=== PATIENT | male | born 1970 | race Caucasian/White ===

== ENCOUNTER 2017-02-26 15:08 | Emergency (ER) | payer MEDICAID, SELFPAY ==
[~2017-02-26] VITALS: Ht 177.8 cm; Wt 83.6 kg
[2017-02-26] MEDS ORDERED: ALBUTEROL/IPRATROPIUM 2.5MG/0.5MG, 3 ML NPPB SCH (15:30)
[2017-02-26] MEDS ORDERED: ALBUTEROL/IPRATROPIUM 2.5MG/0.5MG, 3 ML ONE (15:51)
[2017-02-26 15:54] LABS: BLOOD UREA NITROGEN 11 mg/dL (7-18)
[2017-02-26 18:12] VITALS: BP 116/87
== END 2017-02-26 18:14 | disposition home or self-care (01) ==
LOC: ED 16:39
DX: J44.1 Chronic obstructive pulmonary disease with (acute) exacerbation (principal); H70.11 Chronic mastoiditis, right ear; J06.9 Acute upper respiratory infection, unspecified
CPT/HCPCS: 36415; 70480; 71020; 80048; 85025; 93005; 94640; 99285; J7512; J7620

== ENCOUNTER 2017-03-22 03:38 | Emergency (ER) | payer MEDICAID ==
[~2017-03-22] VITALS: Ht 177.8 cm; Wt 82.8 kg
[2017-03-22 03:40] VITALS: BP 159/101
[2017-03-22] MEDS ORDERED: AMOX-291 PO (04:00)
[2017-03-22] MEDS ORDERED: PRED20TA PO (04:00)
== END 2017-03-22 04:33 | disposition home or self-care (01) ==
LOC: ED 04:27
DX: M79.602 Pain in left arm (principal); H60.92 Unspecified otitis externa, left ear; Z76.0 Encounter for issue of repeat prescription; J44.9 Chronic obstructive pulmonary disease, unspecified
CPT/HCPCS: 99283

== ENCOUNTER 2017-05-09 09:36 | Inpatient (IN) | payer MEDICAID ==
[~2017-05-09] VITALS: Ht 175.3 cm; Wt 104.4 kg
[~2017-05-09 09:36] MED LIST: AMOX-291 PO; PRED20TA PO
[2017-05-09] MEDS ORDERED: ALBUTEROL/IPRATROPIUM 2.5MG/0.5MG, 3 ML NPPB SCH (10:00)
[2017-05-09] MEDS ORDERED: methylPREDNISolone SOD SUCC 125 MG/2 ML IVP ONE (10:00)
[2017-05-09] MEDS ORDERED: SODIUM CHLORIDE FLUSH 10ML SYR IVF ONE (10:00)
[2017-05-09] MEDS ORDERED: SODIUM CHLORIDE 0.9% 1,000ML IVBOLUS ONE (10:00)
[2017-05-09] MEDS ORDERED: ALBUTEROL/IPRATROPIUM 2.5MG/0.5MG, 3 ML ONE (10:14)
[2017-05-09] MEDS ORDERED: methylPREDNISolone SOD SUCC 125 MG/2 ML ONE (10:19)
[2017-05-09 10:54] LABS: BLOOD UREA NITROGEN 9 mg/dL (7-18)
[2017-05-09 10:59] LABS: IS PT STATUS REG ER OR PRE ER? YES
[2017-05-09] MEDS ORDERED: AZITHROMYCIN 500 MG in SODIUM CHLORIDE 0.9% 250 ML IV ONE (11:30)
[2017-05-09] MEDS ORDERED: CEFTRIAXONE PMX 1GM/50ML 50 ML IV ONE (11:30)
[2017-05-09] MEDS ORDERED: CEFTRIAXONE PMX 1GM/50ML 50 ML ONE (11:53)
[2017-05-09] MEDS ORDERED: ZOLPIDEM 5MG TABLET PO PRN (12:00)
[2017-05-09] MEDS ORDERED: ACETAMINOPHEN 325 MG TABLET PO PRN (12:00)
[2017-05-09] MEDS ORDERED: SPIRIVA (12:01)
[2017-05-09] MEDS ORDERED: ALBUTEROL SULFATE (12:01)
[2017-05-09] MEDS: LACTATED RINGERS 1,000 ML IV SCH ×2 (13:00→23:00)
[2017-05-09] MEDS ORDERED: POTASSIUM CHLORIDE 20 MEQ TAB.ER.PRT PO ONE (13:30)
[2017-05-09] MEDS: AZITHROMYCIN 500 MG TABLET PO SCH (15:00)
[2017-05-09] MEDS: HEPARIN 5,000 UNITS/ML, 1ML SQ SCH (15:08)
[2017-05-09] MEDS: GUAIFENESIN 200 MG TABLET PO SCH ×2 (15:08→22:54)
[2017-05-09] MEDS: ALBUTEROL/IPRATROPIUM 2.5MG/0.5MG, 3 ML NPPB SCH ×2 (16:05→20:00)
[2017-05-09 17:18] VITALS: BP 135/89
[2017-05-09] MEDS ORDERED: PNEUMOCOCCAL 23 VACCINE IM-VACC ONE (18:30)
[2017-05-09 20:56] VITALS: BP 141/82
[2017-05-10] MEDS: HEPARIN 5,000 UNITS/ML, 1ML SQ SCH ×3 (00:23→15:53)
[2017-05-10] MEDS: LORazepam 2 MG/ML, 1ML IVPush PRN ×2 (00:23→08:09)
[2017-05-10 01:14] VITALS: BP 125/80
[2017-05-10 05:43] LABS: BLOOD UREA NITROGEN 8 mg/dL (7-18)
[2017-05-10] MEDS: GUAIFENESIN 200 MG TABLET PO SCH ×4 (06:11→20:44)
[2017-05-10 07:12] LABS: DIFF TOTAL CELLS COUNTED 100 CELL DIFF
[2017-05-10 07:14] LABS: ANISOCYTOSIS 1+; VERIFY COUNTS? YES
[2017-05-10 07:17] VITALS: BP 149/95
[2017-05-10] MEDS: ALBUTEROL/IPRATROPIUM 2.5MG/0.5MG, 3 ML NPPB SCH ×4 (07:53→20:00)
[2017-05-10] MEDS ORDERED: OXYcodone/APAP 10/325MG TABLET PO ONE (08:30)
[2017-05-10] MEDS ORDERED: AZITHROMYCIN 500 MG TABLET PO SCH (09:00)
[2017-05-10] MEDS: LACTATED RINGERS 1,000 ML IV SCH ×2 (09:02→18:00)
[2017-05-10] MEDS: CIPROFLOXACIN/HYDROCORTISONE EAR SUSP 0.2-1%, 10ML RIGHT EAR SCH ×2 (11:08→20:44)
[2017-05-10] MEDS: AZITHROMYCIN 500 MG TABLET PO SCH (15:00)
[2017-05-10 15:05] VITALS: BP 162/106
[2017-05-10] MEDS: LORazepam 1MG TABLET PO PRN ×2 (15:11→23:03)
[2017-05-10 15:54] VITALS: BP 159/102
[2017-05-10 19:21] VITALS: BP 159/96
[2017-05-11] MEDS: HEPARIN 5,000 UNITS/ML, 1ML SQ SCH ×3 (00:31→16:58)
[2017-05-11 01:13] VITALS: BP 142/102
[2017-05-11] MEDS: LACTATED RINGERS 1,000 ML IV SCH ×2 (04:00→14:00)
[2017-05-11] MEDS: GUAIFENESIN 200 MG TABLET PO SCH ×4 (05:27→21:25)
[2017-05-11] MEDS: ALBUTEROL/IPRATROPIUM 2.5MG/0.5MG, 3 ML NPPB SCH ×4 (08:07→19:08)
[2017-05-11] MEDS: AZITHROMYCIN 500 MG TABLET PO SCH (08:54)
[2017-05-11] MEDS: CIPROFLOXACIN/HYDROCORTISONE EAR SUSP 0.2-1%, 10ML RIGHT EAR SCH ×2 (08:54→21:26)
[2017-05-11 09:29] VITALS: BP 151/105
[2017-05-11] MEDS: LORazepam 1MG TABLET PO PRN ×2 (11:32→21:26)
[2017-05-11 14:00] VITALS: BP 166/111
[2017-05-11] MEDS: methylPREDNISolone SOD SUCC 125 MG/2 ML IVPush SCH ×2 (14:52→21:26)
[2017-05-11 19:22] VITALS: BP 152/104
[2017-05-11] MEDS: ACETAMINOPHEN 325 MG TABLET PO PRN (22:04)
[2017-05-11] MEDS: ZOLPIDEM 5MG TABLET PO PRN (22:04)
[2017-05-11] MEDS: NICOTINE 21 MG/24 HR PATCH.TD24 TD SCH (22:05)
[2017-05-12] MEDS: HEPARIN 5,000 UNITS/ML, 1ML SQ SCH ×3 (00:28→16:19)
[2017-05-12] MEDS: LACTATED RINGERS 1,000 ML IV SCH ×3 (02:14→22:08)
[2017-05-12 04:25] VITALS: BP 133/84
[2017-05-12] MEDS: ACETAMINOPHEN 325 MG TABLET PO PRN ×2 (04:55→14:21)
[2017-05-12] MEDS: LORazepam 1MG TABLET PO PRN ×2 (04:55→14:21)
[2017-05-12] MEDS: GUAIFENESIN 200 MG TABLET PO SCH ×4 (04:55→21:32)
[2017-05-12] MEDS: methylPREDNISolone SOD SUCC 125 MG/2 ML IVPush SCH ×3 (05:57→22:08)
[2017-05-12 06:40] VITALS: BP 141/88
[2017-05-12] MEDS: ALBUTEROL/IPRATROPIUM 2.5MG/0.5MG, 3 ML NPPB SCH ×4 (07:45→19:10)
[2017-05-12] MEDS: NICOTINE 21 MG/24 HR PATCH.TD24 TD SCH (08:54)
[2017-05-12] MEDS: AZITHROMYCIN 500 MG TABLET PO SCH (08:54)
[2017-05-12] MEDS: CIPROFLOXACIN/HYDROCORTISONE EAR SUSP 0.2-1%, 10ML RIGHT EAR SCH ×2 (08:55→21:32)
[2017-05-12 13:49] VITALS: BP 141/87
[2017-05-12 18:28] VITALS: BP 132/87
[2017-05-12] MEDS: ZOLPIDEM 5MG TABLET PO PRN (21:32)
[2017-05-13] MEDS: HEPARIN 5,000 UNITS/ML, 1ML SQ SCH ×3 (00:56→18:01)
[2017-05-13 03:29] VITALS: BP 133/64
[2017-05-13 05:28] LABS: BLOOD UREA NITROGEN 18 mg/dL (7-18)
[2017-05-13] MEDS: GUAIFENESIN 200 MG TABLET PO SCH ×4 (05:58→21:27)
[2017-05-13] MEDS: methylPREDNISolone SOD SUCC 125 MG/2 ML IVPush SCH (05:58)
[2017-05-13] MEDS: ALBUTEROL/IPRATROPIUM 2.5MG/0.5MG, 3 ML NPPB SCH ×4 (07:00→19:03)
[2017-05-13 07:03] VITALS: BP 151/93
[2017-05-13] MEDS: LORazepam 1MG TABLET PO PRN ×2 (07:31→21:27)
[2017-05-13] MEDS: NICOTINE 21 MG/24 HR PATCH.TD24 TD SCH ×2 (09:00→19:23)
[2017-05-13] MEDS: CIPROFLOXACIN/HYDROCORTISONE EAR SUSP 0.2-1%, 10ML RIGHT EAR SCH ×2 (09:36→21:27)
[2017-05-13] MEDS: AZITHROMYCIN 500 MG TABLET PO SCH (09:36)
[2017-05-13] MEDS: LACTATED RINGERS 1,000 ML IV SCH ×2 (09:38→19:22)
[2017-05-13 17:46] VITALS: BP 156/94
[2017-05-13 18:46] VITALS: BP 142/98
[2017-05-14] MEDS: ZOLPIDEM 5MG TABLET PO PRN (00:24)
[2017-05-14] MEDS: HEPARIN 5,000 UNITS/ML, 1ML SQ SCH ×2 (00:28→07:39)
[2017-05-14 02:42] VITALS: BP 138/88
[2017-05-14] MEDS: GUAIFENESIN 200 MG TABLET PO SCH (06:24)
[2017-05-14] MEDS: LACTATED RINGERS 1,000 ML IV SCH (06:25)
[2017-05-14] MEDS: ALBUTEROL/IPRATROPIUM 2.5MG/0.5MG, 3 ML NPPB SCH ×2 (07:00→09:42)
[2017-05-14 07:03] VITALS: BP 161/104
[2017-05-14] MEDS: LORazepam 1MG TABLET PO PRN (07:37)
[2017-05-14] MEDS: CIPROFLOXACIN/HYDROCORTISONE EAR SUSP 0.2-1%, 10ML RIGHT EAR SCH (07:40)
[2017-05-14] MEDS: NICOTINE 21 MG/24 HR PATCH.TD24 TD SCH (07:41)
[2017-05-14] MEDS ORDERED: ALBU8.5H3 INH (09:05)
[2017-05-14] MEDS ORDERED: PRED20TA PO (09:05)
[2017-05-14] MEDS ORDERED: TRAM50TA2 PO (09:05)
[2017-05-14] MEDS ORDERED: GUAI200T3 PO (09:05)
[2017-05-14] MEDS ORDERED: TIOT18CA INH (09:05)
[2017-05-14] MEDS ORDERED: LORA-446 PO (09:05)
[2017-05-14] MEDS ORDERED: CIPR10DR RIGHT EAR (09:05)
[2017-05-14] MEDS: AZITHROMYCIN 500 MG TABLET PO SCH (10:26)
== END 2017-05-14 12:17 | disposition home or self-care (01) | DRG 189 ==
LOC: ED 10:26 → EDIP 11:29 → 3NE 12:20 → DCLOUNGE 05-14 12:00
PROVIDERS: ADMIT Internal Medicine; ATTEND Hospitalist
DX: J96.01 Acute respiratory failure with hypoxia (principal); J44.1 Chronic obstructive pulmonary disease with (acute) exacerbation; J45.901 Unspecified asthma with (acute) exacerbation; F11.20 Opioid dependence, uncomplicated; J32.9 Chronic sinusitis, unspecified; G89.29 Other chronic pain; H66.91 Otitis media, unspecified, right ear; R51 Headache; H60.91 Unspecified otitis externa, right ear; F17.210 Nicotine dependence, cigarettes, uncomplicated; Z59.0 Homelessness; Z71.6 Tobacco abuse counseling
CPT/HCPCS: 36415; 71010; 80048; 82040; 82607; 82746; 83880; 84484; 85025; 87040; 90732; 93005; 93306; 94640; 96361; 96365; 96375; J0696; J1644; J7620; J2060; J2930; J7030; J7120; J7512

== ENCOUNTER 2017-10-26 04:27 | Emergency (ER) | payer MEDICAID ==
[~2017-10-26] VITALS: Ht 177.8 cm; Wt 80.3 kg
[~2017-10-26 04:27] MED LIST changes: +ALBU8.5H8 INH; +ALBUTEROL SULFATE; +CIPR10DR RIGHT EAR; +GUAI200T3 PO; +LORA-446 PO; +SPIRIVA; +TIOT18CA INH; +TRAM50TA2 PO
[2017-10-26 04:28] VITALS: BP 145/99
[2017-10-26] MEDS ORDERED: BACITRACIN ZINC OINT 500U/GM, 0.9 GM ONE (04:57)
== END 2017-10-26 05:19 | disposition home or self-care (01) ==
LOC: ED 05:13
DX: S81.852A Open bite, left lower leg, initial encounter (principal); J45.909 Unspecified asthma, uncomplicated; Z87.891 Personal history of nicotine dependence; W54.0XXA Bitten by dog, initial encounter; Y93.89 Activity, other specified; Y92.89 Other specified places as the place of occurrence of the external cause; Y99.8 Other external cause status
CPT/HCPCS: 99283

== ENCOUNTER 2017-12-29 15:13 | Emergency (ER) | payer MEDICAID ==
[~2017-12-29] VITALS: Ht 177.8 cm; Wt 84.6 kg
[2017-12-29 15:15] VITALS: BP 167/102
[2017-12-29] MEDS ORDERED: KETOROLAC 30 MG/1 ML ONE (15:58)
[2017-12-29] MEDS ORDERED: KETOROLAC 30 MG/1 ML IM ONE (16:00)
== END 2017-12-29 16:30 | disposition home or self-care (01) ==
LOC: ED 16:20
DX: M54.41 Lumbago with sciatica, right side (principal); M16.11 Unilateral primary osteoarthritis, right hip; M51.16 Intervertebral disc disorders with radiculopathy, lumbar region; J45.909 Unspecified asthma, uncomplicated
CPT/HCPCS: 72110; 73502; 96372; 99284; J1885

== ENCOUNTER 2018-03-02 16:31 | Emergency (ER) | payer MEDICAID ==
[~2018-03-02] VITALS: Ht 177.8 cm; Wt 82.8 kg
[2018-03-02] MEDS ORDERED: ALBUTEROL/IPRATROPIUM 2.5MG/0.5MG, 3 ML ONE (16:57)
[2018-03-02] MEDS ORDERED: ALBUTEROL SULFATE 2.5MG/0.5ML ONE (16:58)
[2018-03-02] MEDS ORDERED: ALBUTEROL/IPRATROPIUM 2.5MG/0.5MG, 3 ML NPPB PRN (17:00)
[2018-03-02 17:52] VITALS: BP 141/106
== END 2018-03-02 19:41 | disposition home or self-care (01) ==
LOC: ED 18:50
DX: S29.012A Strain of muscle and tendon of back wall of thorax, initial encounter (principal); J45.41 Moderate persistent asthma with (acute) exacerbation; M19.90 Unspecified osteoarthritis, unspecified site; X58.XXXA Exposure to other specified factors, initial encounter; Y93.89 Activity, other specified; Y92.89 Other specified places as the place of occurrence of the external cause; Y99.8 Other external cause status
CPT/HCPCS: 71045; 93005; 94640; 99284; J7512; J7620

== ENCOUNTER 2018-04-24 18:33 | Emergency (ER) | payer MEDICAID ==
[~2018-04-24] VITALS: Ht 177.8 cm; Wt 78.2 kg
[2018-04-24 18:35] VITALS: BP 147/92
[2018-04-24] MEDS ORDERED: HYDROcodone/APAP 5/325 TABLET PO STA (19:15)
[2018-04-24] MEDS ORDERED: HYDROcodone/APAP 5/325 TABLET ONE (19:19)
[2018-04-24] MEDS ORDERED: ALBUTEROL/IPRATROPIUM 2.5MG/0.5MG, 3 ML ONE (19:30)
[2018-04-24] MEDS ORDERED: ALBUTEROL/IPRATROPIUM 2.5MG/0.5MG, 3 ML NPPB ONE (19:30)
== END 2018-04-24 20:21 | disposition home or self-care (01) ==
LOC: ED 19:45
DX: S20.211A Contusion of right front wall of thorax, initial encounter (principal); J45.909 Unspecified asthma, uncomplicated; M19.91 Primary osteoarthritis, unspecified site; F17.210 Nicotine dependence, cigarettes, uncomplicated; Y04.0XXA Assault by unarmed brawl or fight, initial encounter; Y93.89 Activity, other specified; Y92.009 Unspecified place in unspecified non-institutional (private) residence as the place of occurrence of the external cause; Y99.8 Other external cause status
CPT/HCPCS: 71101; 94640; 99284; J7512; J7620

== ENCOUNTER 2018-09-17 19:39 | Emergency (ER) | payer MEDICAID ==
[~2018-09-17] VITALS: Ht 170.2 cm; Wt 85.1 kg
[~2018-09-17 19:39] MED LIST changes: +ALBU18HF INH; +ALBU90AE INH; +FLUT1AER INH; +FOLI-17 PO; +GUAI400T66 PO; +LORA-445 PO; +THIA100T67 PO
[2018-09-17 19:55] VITALS: BP 158/111
[2018-09-17] MEDS ORDERED: HYDROcodone/APAP 5/325 TABLET ONE (20:06)
[2018-09-17] MEDS ORDERED: HYDROcodone/APAP 5/325 TABLET PO STA (20:18)
== END 2018-09-17 20:36 | disposition home or self-care (01) ==
LOC: ED 20:30
DX: G56.02 Carpal tunnel syndrome, left upper limb (principal); M65.842 Other synovitis and tenosynovitis, left hand; J45.909 Unspecified asthma, uncomplicated; Z87.09 Personal history of other diseases of the respiratory system
CPT/HCPCS: 29260; 99283

== ENCOUNTER 2018-12-03 19:46 | Emergency (ER) | payer MEDICAID ==
[~2018-12-03] VITALS: Ht 177.8 cm; Wt 80.1 kg
[2018-12-03 20:03] VITALS: BP 167/100
--- NOTE | 2018-12-03 20:11 | NUR ---
PT PRESENTED WITH C/O L ARM PAIN SP MGLF. +CMS; NO OBVIOUS DEFORMITY NOTED. DENIES LOC. AWAITING PA FOR EVAL
[2018-12-03] MEDS ORDERED: KETOROLAC 30 MG/1 ML ONE (20:39)
--- NOTE | 2018-12-03 20:43 | NUR ---
PT MEDICATED PER MAR
[2018-12-03] MEDS ORDERED: KETOROLAC 30 MG/1 ML IM ONE (21:00)
== END 2018-12-03 21:09 | disposition home or self-care (01) ==
LOC: ED 20:45
DX: G89.11 Acute pain due to trauma (principal); M79.632 Pain in left forearm; M25.532 Pain in left wrist; J45.909 Unspecified asthma, uncomplicated; W00.0XXA Fall on same level due to ice and snow, initial encounter; Y93.89 Activity, other specified; Y92.89 Other specified places as the place of occurrence of the external cause; Y99.8 Other external cause status
CPT/HCPCS: 29125; 73090; 73130; 96372; 99283; J1885

== ENCOUNTER 2018-12-26 18:42 | Inpatient (IN) | payer MEDICAID ==
[~2018-12-26] VITALS: Ht 177.8 cm; Wt 79.2 kg
[2018-12-26] MEDS ORDERED: ALBUTEROL/IPRATROPIUM 2.5MG/0.5MG, 3 ML NPPB ONE (19:30)
[2018-12-26] MEDS ORDERED: ALBUTEROL/IPRATROPIUM 2.5MG/0.5MG, 3 ML ONE (19:44)
[2018-12-26] MEDS ORDERED: CEFTRIAXONE PMX 1GM/50ML 50 ML IV ONE (20:30)
[2018-12-26] MEDS ORDERED: AZITHROMYCIN 500 MG in SODIUM CHLORIDE 0.9% 250 ML IV ONE (20:30)
[2018-12-26 20:31] LABS: BASOPHILS # (AUTO) 0.04 x10^3/uL (0-0.1); BASOPHILS % (AUTO) 0 % (0-1); EOSINOPHILS # (AUTO) 0.15 x10^3/uL (0-0.4); EOSINOPHILS % (AUTO) 2 % (1-7); LYMPHOCYTES % (AUTO) 17 % (22-44); MD NO; MEAN CORPUSCULAR HEMOGLOBIN 35.6 pg (27.5-34.5); MEAN CORPUSCULAR HGB CONC 33.8 g/dL (33.2-36.2); MEAN CORPUSCULAR VOLUME 105.3 fL (81-97); MEAN PLATELET VOLUME 9.1 fL (7.4-10.4); MONOCYTES # (AUTO) 0.56 x10^3/uL (0.2-0.8); MONOCYTES % (AUTO) 6 % (2-9); NEUTROPHILS % (AUTO) 75 % (42-75); PLATELET COUNT 155 x10^3/uL (130-400); RED BLOOD COUNT 4.55 x10^6/uL (4.38-5.82)
[2018-12-26 20:43] LABS: ALANINE AMINOTRANSFERASE 86 U/L (12-78); ALBUMIN 3.9 g/dL (3.4-5.0); ANION GAP 6 mmol/L (5-15); CALCIUM 8.5 mg/dL (8.5-10.1); CHLORIDE 107 mmol/L (98-107)
[2018-12-26 20:47] LABS: ALKALINE PHOSPHATASE 115 U/L (45-117); BILIRUBIN,TOTAL 0.8 mg/dL (0.2-1.0); TOTAL PROTEIN 7.3 g/dL (6.4-8.2); TROPONIN I < 0.015 ng/mL (0.000-0.045)
[2018-12-26] MEDS ORDERED: POTASSIUM CHLORIDE 20 MEQ TAB.ER.PRT PO ONE (21:00)
[2018-12-26] MEDS ORDERED: POTASSIUM CHLORIDE 20 MEQ TAB.ER.PRT ONE (21:09)
[2018-12-26] MEDS ORDERED: CEFTRIAXONE PMX 1GM/50ML 50 ML ONE (21:23)
[2018-12-26 22:18] VITALS: BP 156/109
[2018-12-26] MEDS ORDERED: hydrALAzine 20 MG/ML, 1ML IVPush PRN (23:00)
[2018-12-26] MEDS ORDERED: ENOXAPARIN 40 MG/0.4 ML SQ SCH (23:00)
[2018-12-26] MEDS: methylPREDNISolone SOD SUCC 40 MG/ML IVPush SCH (23:52)
[2018-12-27] MEDS ORDERED: UMEC62.5 INH (00:03)
[2018-12-27] MEDS ORDERED: ALBUTEROL SULFATE 2.5 MG/3 ML ONE ×2 (00:37→14:54)
[2018-12-27 00:43] VITALS: BP 169/95
[2018-12-27] MEDS: ALBUTEROL SULFATE 2.5 MG/3 ML NPPB SCH ×4 (00:45→20:14)
[2018-12-27] MEDS: DIPHENHYDRAMINE 50 MG CAPSULE PO PRN ×2 (01:14→21:39)
[2018-12-27] MEDS: NICOTINE 21 MG/24 HR PATCH.TD24 TD SCH ×2 (01:14→14:55)
[2018-12-27] MEDS ORDERED: POTASSIUM CHLORIDE 20 MEQ TAB.ER.PRT PO ONE (02:30)
[2018-12-27] MEDS ORDERED: POTASSIUM CHLORIDE 20 MEQ, MAGNESIUM SULFATE 1 GM, THIAMINE 200 MG, FOLIC ACID 1 MG, MV... IV SCH (02:30)
[2018-12-27 02:43] VITALS: BP 137/90
[2018-12-27] MEDS: LORazepam 2 MG/ML, 1ML IVPush PRN ×2 (02:47→09:17)
[2018-12-27 05:35] LABS: MEAN CORPUSCULAR VOLUME 105.8 fL (81-97); MEAN PLATELET VOLUME 9.4 fL (7.4-10.4); PLATELET COUNT 137 x10^3/uL (130-400); RED BLOOD COUNT 4.61 x10^6/uL (4.38-5.82); RED CELL DISTRIBUTION WIDTH 12.9 % (9.4-14.8)
[2018-12-27 05:42] LABS: ANION GAP 8 mmol/L (5-15); CHLORIDE 106 mmol/L (98-107)
[2018-12-27 05:45] LABS: CREATININE 0.86 mg/dL (0.7-1.3)
[2018-12-27] MEDS: methylPREDNISolone SOD SUCC 40 MG/ML IVPush SCH ×3 (05:59→18:42)
[2018-12-27 06:02] LABS: BASOPHILS % (AUTO) 0 % (0-1); EOSINOPHILS % (AUTO) 0 % (1-7); LYMPHOCYTES # (AUTO) 0.32 x10^3/uL (1-3.4); LYMPHOCYTES % (AUTO) 6 % (22-44); MD SCAN; MONOCYTES # (AUTO) 0.02 x10^3/uL (0.2-0.8); MONOCYTES % (AUTO) 1 % (2-9); NEUTROPHILS # (AUTO) 4.98 x10^3/uL (1.8-6.8); NEUTROPHILS % (AUTO) 94 % (42-75)
[2018-12-27] MEDS ORDERED: ALBUTEROL/IPRATROPIUM 2.5MG/0.5MG, 3 ML ONE (07:04)
[2018-12-27 07:41] VITALS: BP 140/88
[2018-12-27] MEDS ORDERED: BUDESONIDE 0.5 MG/2 ML INHA NPPB SCH (09:00)
[2018-12-27] MEDS: LISINOPRIL 10 MG TABLET PO SCH (09:02)
[2018-12-27] MEDS ORDERED: LORazepam 2 MG/ML, 1ML IV PRN ×4 (11:30)
[2018-12-27] MEDS ORDERED: LORazepam 1MG TABLET PO PRN ×2 (11:30)
[2018-12-27] MEDS: CHLORDIAZEPOXIDE 25 MG CAPSULE PO SCH ×3 (11:55→21:38)
[2018-12-27 13:13] VITALS: BP 143/82
[2018-12-27 18:15] LABS: CLOSTRIDIUM DIFFICILE ANTIGEN POSITIVE; CLOSTRIDIUM DIFFICILE TOXIN NEGATIVE (Negative)
[2018-12-27 20:27] VITALS: BP 153/93
[2018-12-27] MEDS: VANCOMYCIN 50 MG/ML ORAL SUSP PO SCH (21:38)
[2018-12-27] MEDS: LORazepam 2 MG/ML, 1ML IV PRN (21:48)
[2018-12-27] MEDS: ENOXAPARIN 40 MG/0.4 ML SQ SCH (23:16)
[2018-12-28 00:56] VITALS: BP 147/92
[2018-12-28] MEDS: methylPREDNISolone SOD SUCC 40 MG/ML IVPush SCH ×4 (01:00→17:53)
[2018-12-28] MEDS: ALBUTEROL SULFATE 2.5 MG/3 ML NPPB SCH ×2 (03:38→07:43)
[2018-12-28] MEDS: VANCOMYCIN 50 MG/ML ORAL SUSP PO SCH ×4 (03:41→23:29)
[2018-12-28] MEDS: LORazepam 2 MG/ML, 1ML IV PRN (04:15)
[2018-12-28 06:34] LABS: BASOPHILS % (AUTO) 0 % (0-1); EOSINOPHILS % (AUTO) 0 % (1-7); LYMPHOCYTES # (AUTO) 0.29 x10^3/uL (1-3.4); LYMPHOCYTES % (AUTO) 2 % (22-44); MD NO; MEAN CORPUSCULAR HEMOGLOBIN 36.2 pg (27.5-34.5); MEAN CORPUSCULAR HGB CONC 34.4 g/dL (33.2-36.2); MEAN CORPUSCULAR VOLUME 105.2 fL (81-97); MEAN PLATELET VOLUME 10.4 fL (7.4-10.4); MONOCYTES # (AUTO) 0.43 x10^3/uL (0.2-0.8); MONOCYTES % (AUTO) 3 % (2-9); NEUTROPHILS # (AUTO) 11.91 x10^3/uL (1.8-6.8); NEUTROPHILS % (AUTO) 94 % (42-75); PLATELET COUNT 113 x10^3/uL (130-400); RED BLOOD COUNT 4.32 x10^6/uL (4.38-5.82); RED CELL DISTRIBUTION WIDTH 13.2 % (9.4-14.8)
[2018-12-28 06:44] LABS: CHLORIDE 108 mmol/L (98-107)
[2018-12-28 07:18] LABS: ALANINE AMINOTRANSFERASE 97 U/L (12-78); ALBUMIN 3.3 g/dL (3.4-5.0); ALKALINE PHOSPHATASE 139 U/L (45-117); ANION GAP 4 mmol/L (5-15); BILIRUBIN,TOTAL 0.8 mg/dL (0.2-1.0); CALCIUM 8.8 mg/dL (8.5-10.1); CREATININE 0.76 mg/dL (0.7-1.3); TOTAL PROTEIN 6.5 g/dL (6.4-8.2)
[2018-12-28 07:38] LABS: FREE T4 (FREE THYROXINE) 0.56 ng/dL (0.76-1.46)
[2018-12-28] MEDS ORDERED: ALBUTEROL SULFATE 2.5 MG/3 ML NPPB PRN (08:00)
[2018-12-28 08:17] VITALS: BP 135/85
[2018-12-28] MEDS: NICOTINE 21 MG/24 HR PATCH.TD24 TD SCH (08:39)
[2018-12-28] MEDS: CHLORDIAZEPOXIDE 25 MG CAPSULE PO SCH ×3 (08:39→20:41)
[2018-12-28] MEDS: LISINOPRIL 10 MG TABLET PO SCH (08:39)
[2018-12-28 12:48] VITALS: BP 142/90
[2018-12-28] MEDS: LORazepam 1MG TABLET PO PRN ×2 (12:59→18:02)
[2018-12-28 20:00] VITALS: BP 144/89
[2018-12-28] MEDS: DIPHENHYDRAMINE 50 MG CAPSULE PO PRN (20:41)
[2018-12-28] MEDS: LIDODERM 5% PATCH TD SCH (22:08)
[2018-12-28] MEDS: ENOXAPARIN 40 MG/0.4 ML SQ SCH (22:12)
[2018-12-29] MEDS: methylPREDNISolone SOD SUCC 40 MG/ML IVPush SCH ×4 (00:09→18:01)
[2018-12-29] MEDS: LORazepam 0.5MG TABLET PO PRN ×5 (00:15→18:10)
[2018-12-29 00:31] VITALS: BP 141/82
[2018-12-29] MEDS: VANCOMYCIN 50 MG/ML ORAL SUSP PO SCH ×2 (05:04→12:54)
[2018-12-29 06:18] LABS: BASOPHILS # (AUTO) 0.01 x10^3/uL (0-0.1); BASOPHILS % (AUTO) 0 % (0-1); EOSINOPHILS % (AUTO) 0 % (1-7); LYMPHOCYTES # (AUTO) 0.34 x10^3/uL (1-3.4); LYMPHOCYTES % (AUTO) 3 % (22-44); MD NO; MEAN CORPUSCULAR HEMOGLOBIN 36.3 pg (27.5-34.5); MEAN CORPUSCULAR HGB CONC 33.8 g/dL (33.2-36.2); MEAN CORPUSCULAR VOLUME 107.6 fL (81-97); MEAN PLATELET VOLUME 10.2 fL (7.4-10.4); MONOCYTES # (AUTO) 0.49 x10^3/uL (0.2-0.8); MONOCYTES % (AUTO) 4 % (2-9); NEUTROPHILS # (AUTO) 11.06 x10^3/uL (1.8-6.8); NEUTROPHILS % (AUTO) 93 % (42-75); PLATELET COUNT 109 x10^3/uL (130-400); RED BLOOD COUNT 4.34 x10^6/uL (4.38-5.82); RED CELL DISTRIBUTION WIDTH 13.2 % (9.4-14.8)
[2018-12-29 06:26] LABS: ALBUMIN 3.1 g/dL (3.4-5.0); ANION GAP 4 mmol/L (5-15); CALCIUM 8.6 mg/dL (8.5-10.1); CHLORIDE 104 mmol/L (98-107); CREATININE 0.97 mg/dL (0.7-1.3)
[2018-12-29 07:11] VITALS: BP 139/78
[2018-12-29] MEDS: CHLORDIAZEPOXIDE 25 MG CAPSULE PO SCH ×2 (09:00→09:42)
[2018-12-29] MEDS: NICOTINE 21 MG/24 HR PATCH.TD24 TD SCH (09:42)
[2018-12-29] MEDS: LISINOPRIL 10 MG TABLET PO SCH (09:42)
[2018-12-29 13:18] VITALS: BP 132/83
[2018-12-29 19:13] VITALS: BP 166/97
[2018-12-29] MEDS: LORazepam 1MG TABLET PO PRN (21:02)
[2018-12-29] MEDS: LIDODERM 5% PATCH TD SCH (21:03)
[2018-12-29 22:15] VITALS: BP 176/107
[2018-12-29] MEDS: ENOXAPARIN 40 MG/0.4 ML SQ SCH (22:17)
[2018-12-29] MEDS: DIPHENHYDRAMINE 50 MG CAPSULE PO PRN (22:18)
[2018-12-30 00:21] VITALS: BP 169/96
[2018-12-30] MEDS: methylPREDNISolone SOD SUCC 40 MG/ML IVPush SCH ×2 (00:34→05:40)
[2018-12-30] MEDS: LORazepam 1MG TABLET PO PRN ×3 (00:34→06:21)
[2018-12-30 01:30] VITALS: BP 163/104
[2018-12-30 04:00] VITALS: BP 173/109
[2018-12-30 06:13] VITALS: BP 154/95
[2018-12-30 06:24] LABS: BASOPHILS % (AUTO) 0 % (0-1); EOSINOPHILS % (AUTO) 0 % (1-7); LYMPHOCYTES # (AUTO) 0.41 x10^3/uL (1-3.4); LYMPHOCYTES % (AUTO) 4 % (22-44); MD NO; MEAN CORPUSCULAR HEMOGLOBIN 35.6 pg (27.5-34.5); MEAN CORPUSCULAR HGB CONC 33.5 g/dL (33.2-36.2); MEAN CORPUSCULAR VOLUME 106.1 fL (81-97); MEAN PLATELET VOLUME 10.7 fL (7.4-10.4); MONOCYTES # (AUTO) 0.53 x10^3/uL (0.2-0.8); MONOCYTES % (AUTO) 5 % (2-9); NEUTROPHILS # (AUTO) 10.51 x10^3/uL (1.8-6.8); NEUTROPHILS % (AUTO) 92 % (42-75); PLATELET COUNT 104 x10^3/uL (130-400); RED BLOOD COUNT 4.61 x10^6/uL (4.38-5.82); RED CELL DISTRIBUTION WIDTH 13.3 % (9.4-14.8)
[2018-12-30 06:31] LABS: ALBUMIN 3.5 g/dL (3.4-5.0); ANION GAP 7 mmol/L (5-15); CHLORIDE 101 mmol/L (98-107)
[2018-12-30 06:34] LABS: ALANINE AMINOTRANSFERASE 175 U/L (12-78); ALKALINE PHOSPHATASE 193 U/L (45-117); BILIRUBIN,TOTAL 0.5 mg/dL (0.2-1.0); CREATININE 1.03 mg/dL (0.7-1.3)
[2018-12-30 07:10] VITALS: BP 151/103
[2018-12-30] MEDS ORDERED: INSULIN LISPRO 100 UNITS/ML, PEN SQ-INSULIN SCH (07:30)
[2018-12-30] MEDS ORDERED: CHLORDIAZEPOXIDE 25 MG CAPSULE PO SCH (09:00)
[2018-12-30] MEDS ORDERED: THIAMINE 100MG TABLET PO SCH (09:00)
[2018-12-30] MEDS ORDERED: FOLIC ACID 1 MG TABLET PO SCH (09:00)
[2018-12-30 12:30] LABS: HEMOGLOBIN A1C 5.4 % (4.2-6.3)
== END 2018-12-30 09:39 | disposition left against medical advice (07) | DRG 189 ==
LOC: ED 21:23 → EDIP 22:00 → 4EST 22:07
PROVIDERS: ADMIT Family Medicine; ATTEND Family Medicine
DX: J96.01 Acute respiratory failure with hypoxia (principal); J44.1 Chronic obstructive pulmonary disease with (acute) exacerbation; F17.200 Nicotine dependence, unspecified, uncomplicated; D69.6 Thrombocytopenia, unspecified; I10 Essential (primary) hypertension; D75.89 Other specified diseases of blood and blood-forming organs; K75.9 Inflammatory liver disease, unspecified; G56.00 Carpal tunnel syndrome, unspecified upper limb; M19.90 Unspecified osteoarthritis, unspecified site; Z53.21 Procedure and treatment not carried out due to patient leaving prior to being seen by health care provider; R07.2 Precordial pain; F10.20 Alcohol dependence, uncomplicated; B96.89 Other specified bacterial agents as the cause of diseases classified elsewhere; Z79.899 Other long term (current) drug therapy
CPT/HCPCS: 36415; 73080; 73110; 99285; J3370; J7613; J7620; J7626; 71045; 80048; 80053; 80074; 82040; 82607; 82962; 83036; 83735; 83880; 84100; 84439; 84443; 84481; 84484; 85025; 85379; 87324; 87493; 93005; 94640; G0378; J0696; J1650; J3411; J3475; J3480; J0360; J1815; J2060; J2920; J7030; J7512

== ENCOUNTER 2018-12-31 18:34 | Emergency (ER) | payer MEDICAID ==
[~2018-12-31] VITALS: Ht 177.8 cm; Wt 81.1 kg
[~2018-12-31 18:34] MED LIST changes: +UMEC62.5 INH
[2018-12-31] MEDS ORDERED: ALBUTEROL/IPRATROPIUM 2.5MG/0.5MG, 3 ML NPPB SCH (19:00)
[2018-12-31 19:15] LABS: MEAN CORPUSCULAR HEMOGLOBIN 36.3 pg (27.5-34.5); MEAN CORPUSCULAR HGB CONC 34.9 g/dL (33.2-36.2); MEAN CORPUSCULAR VOLUME 104.1 fL (81-97); MEAN PLATELET VOLUME 9.1 fL (7.4-10.4); PLATELET COUNT 109 x10^3/uL (130-400); RED BLOOD COUNT 4.75 x10^6/uL (4.38-5.82); RED CELL DISTRIBUTION WIDTH 13.2 % (9.4-14.8)
[2018-12-31 19:23] LABS: ALBUMIN 3.8 g/dL (3.4-5.0); ANION GAP 8 mmol/L (5-15); CALCIUM 8.3 mg/dL (8.5-10.1); CHLORIDE 107 mmol/L (98-107)
[2018-12-31 19:28] LABS: CREATININE 0.72 mg/dL (0.7-1.3); TROPONIN I 0.028 ng/mL (0.000-0.045)
[2018-12-31 19:52] LABS: BASOPHILS # (AUTO) 0.04 x10^3/uL (0-0.1); BASOPHILS % (AUTO) 0 % (0-1); EOSINOPHILS # (AUTO) 0.04 x10^3/uL (0-0.4); EOSINOPHILS % (AUTO) 0 % (1-7); LYMPHOCYTES # (AUTO) 2.27 x10^3/uL (1-3.4); LYMPHOCYTES % (AUTO) 21 % (22-44); MD SCAN; MONOCYTES # (AUTO) 0.86 x10^3/uL (0.2-0.8); MONOCYTES % (AUTO) 8 % (2-9); NEUTROPHILS # (AUTO) 7.85 x10^3/uL (1.8-6.8); NEUTROPHILS % (AUTO) 71 % (42-75)
--- NOTE | 2018-12-31 20:52 | NUR ---
PT ADMITTED FOR [facility] 2 DAYS AGO. PT LEFT AMA. PT CAME BACK FOR TREATMENT. PT MEDICATED. RT CALLED. CALL LIGHT IN REACH
[2018-12-31] MEDS ORDERED: ALBUTEROL/IPRATROPIUM 2.5MG/0.5MG, 3 ML ONE (20:53)
[2018-12-31] MEDS ORDERED: ACETAMINOPHEN 500 MG TABLET ONE (21:53)
--- NOTE | 2018-12-31 21:57 | NUR ---
PT MEDICATED WITH TYLENOL. VSS. PT VERBALZED UNDERSTANDING OF DISCHARGE INSTRUCTIONS. PT AMBULATED OUT OF ER.
[2018-12-31 21:58] VITALS: BP 157/92
[2018-12-31] MEDS ORDERED: ACETAMINOPHEN 500 MG TABLET PO ONE (22:00)
== END 2018-12-31 22:00 | disposition home or self-care (01) ==
LOC: ED 21:30
DX: J44.1 Chronic obstructive pulmonary disease with (acute) exacerbation (principal); M79.10 Myalgia, unspecified site; M19.90 Unspecified osteoarthritis, unspecified site; I10 Essential (primary) hypertension; Z87.891 Personal history of nicotine dependence
CPT/HCPCS: 36415; 71046; 80048; 82040; 83605; 84484; 85025; 93005; 94640; 99284; J7512; J7620

== ENCOUNTER 2019-01-13 16:29 | Inpatient (IN) | payer MEDICAID ==
[~2019-01-13] VITALS: Ht 177.8 cm; Wt 79.1 kg
--- NOTE | 2019-01-13 16:40 | NUR ---
BIB [facility] FROM BUS STOP FOUND 80% ON RA, AND ALTERED, ORIENTED ONLY TO SELF. BREATH SOUNDS TIGHT ALMOST ABSENT FROM NOT MOVING MUCH AIR. PRESENTING ON 15L NRB @95%IV IN PLACE ON ARRIVAL. GIVEN 1 NEB TREATMENT AND 1 ALBUTEROL TREATMENT IN ROUTE. CONNECTED TO ALL MONITORING, TACHY HR, RAPID RESP RATE AND HTN. MD TO BEDSIDE IMMEDIATELY. ORDERS RECEIVED. RT TO BEDSIDE, PLACED ON OPTI FLOW @ 50% ON 40L. SECOND IV PLACED. EKG COMPLETED. WILL CONTINUE TO MONITOR
[2019-01-13] MEDS ORDERED: methylPREDNISolone SOD SUCC 125 MG/2 ML ONE (16:59)
[2019-01-13 17:00] LABS: BASOPHILS # (AUTO) 0.03 x10^3/uL (0-0.1); BASOPHILS % (AUTO) 1 % (0-1); EOSINOPHILS # (AUTO) 0.09 x10^3/uL (0-0.4); EOSINOPHILS % (AUTO) 1 % (1-7); LYMPHOCYTES # (AUTO) 1.43 x10^3/uL (1-3.4); LYMPHOCYTES % (AUTO) 20 % (22-44); MD NO; MEAN CORPUSCULAR HEMOGLOBIN 35.4 pg (27.5-34.5); MEAN CORPUSCULAR VOLUME 104.2 fL (81-97); MEAN PLATELET VOLUME 8.9 fL (7.4-10.4); MONOCYTES # (AUTO) 0.62 x10^3/uL (0.2-0.8); MONOCYTES % (AUTO) 9 % (2-9); NEUTROPHILS # (AUTO) 4.96 x10^3/uL (1.8-6.8); NEUTROPHILS % (AUTO) 70 % (42-75); PLATELET COUNT 150 x10^3/uL (130-400); RED BLOOD COUNT 4.33 x10^6/uL (4.38-5.82)
[2019-01-13] MEDS ORDERED: ALBUTEROL/IPRATROPIUM 2.5MG/0.5MG, 3 ML NPPB SCH (17:00)
[2019-01-13] MEDS ORDERED: methylPREDNISolone SOD SUCC 125 MG/2 ML IVP ONE (17:00)
[2019-01-13] MEDS ORDERED: SODIUM CHLORIDE FLUSH 10ML SYR IVF ONE (17:00)
--- NOTE | 2019-01-13 17:01 | NUR ---
LABS AND BLOOD CULTURES X2 COLLECTED.
--- NOTE | 2019-01-13 17:04 | NUR ---
PT MEDICATED PER MAR
[2019-01-13 17:08] LABS: ALANINE AMINOTRANSFERASE 127 U/L (12-78); ALBUMIN 3.7 g/dL (3.4-5.0); ANION GAP 9 mmol/L (5-15); CALCIUM 8.4 mg/dL (8.5-10.1); CHLORIDE 111 mmol/L (98-107); CREATININE 0.67 mg/dL (0.7-1.3)
[2019-01-13 17:10] LABS: INTERNATIONAL NORMALIZED RATIO 0.99 (0.93-1.1); PROTHROMBIN TIME 10.4 Seconds (9.6-11.5)
[2019-01-13] MEDS ORDERED: ALBUTEROL/IPRATROPIUM 2.5MG/0.5MG, 3 ML NEB ONE (17:10)
[2019-01-13] MEDS ORDERED: ALBUTEROL SULFATE 2.5 MG/3 ML NPPB ONE (17:10)
[2019-01-13 17:11] LABS: ALKALINE PHOSPHATASE 94 U/L (45-117); BILIRUBIN,TOTAL 0.5 mg/dL (0.2-1.0); TOTAL PROTEIN 7.1 g/dL (6.4-8.2); TROPONIN I < 0.015 ng/mL (0.000-0.045)
[2019-01-13] MEDS ORDERED: ALBUTEROL/IPRATROPIUM 2.5MG/0.5MG, 3 ML ONE (17:11)
[2019-01-13] MEDS ORDERED: ALBUTEROL SULFATE 2.5MG/0.5ML ONE (17:11)
[2019-01-13] MEDS ORDERED: LORazepam 2 MG/ML, 1ML ONE ×2 (17:40→22:51)
--- NOTE | 2019-01-13 17:57 | NUR ---
PT TAKEN TO CT, TOLERATED WELL.
--- NOTE | 2019-01-13 17:58 | NUR ---
SECURITY CALLED TO LOCK UP PT WALLET AND TARIQ FOR SAFE KEEPING
[2019-01-13] MEDS ORDERED: LORazepam 2 MG/ML, 1ML IVPush ONE ×3 (18:00→22:30)
--- NOTE | 2019-01-13 18:14 | NUR ---
PT CURRENTLY SLEEPING IN BED, NADN, VSS AT THIS TIME. AWAITING TEST RESULTS AND ADMIT.
[2019-01-13] MEDS ORDERED: PLEASE ENTER HEIGHT AND WEIGHT MC SCH ×2 (18:45→21:30)
--- NOTE | 2019-01-13 18:47 | NUR ---
HOSPITALIST TO BEDSIDE FOR ADMIT ASSESSMENT. TRIALED ON 4L NC PER MD REQUEST PT DECREASING TO 86%, SWITCHED BACK TO OPTIFLOW.
--- NOTE | 2019-01-13 18:51 | NUR ---
PT REPORTING "I DRINK LIKE A FISH, EVERY DAY, ABOUT A FIFTH FOR MY JOINT PAIN." PT BECOMING TREMULOUS AT THIS TIME. HOSPITALIST UPDATED.
[2019-01-13] MEDS ORDERED: ALBUTEROL/IPRATROPIUM 2.5MG/0.5MG, 3 ML HHN PRN (19:00)
[2019-01-13] MEDS ORDERED: SODIUM CHLORIDE FLUSH 10ML SYR IVF PRN (19:00)
--- NOTE | 2019-01-13 19:10 | NUR ---
REPORT GIVEN TO GRIFFIN RN, PT READY FOR TRANSPORT
[2019-01-13] MEDS ORDERED: LEVOFLOXACIN/PMX 750MG/150ML 150 ML ONE (19:12)
[2019-01-13] MEDS: LEVOFLOXACIN/PMX 750MG/150ML 150 ML IV SCH (19:18)
[2019-01-13 19:30] VITALS: BP 134/87
[2019-01-13] MEDS ORDERED: LORazepam 2 MG/ML, 1ML IV PRN (19:30)
[2019-01-13] MEDS ORDERED: hydrALAzine 20 MG/ML, 1ML IVPush PRN (19:30)
[2019-01-13] MEDS ORDERED: ONDANSETRON 2MG/ML, 2ML IVPush PRN (19:30)
[2019-01-13] MEDS: SODIUM CHLORIDE 0.9% 1,000 ML IV SCH (20:35)
[2019-01-13 21:35] LABS: AMPHETAMINE SCREEN, URINE Negative (Negative); BARBITURATE SCREEN, URINE Negative (Negative); BENZODIAZEPINE SCREEN, URINE Negative (Negative); CANNABINOID SCREEN, URINE Negative (Negative); COCAINE SCREEN, URINE Negative (Negative); METHADONE SCREEN, URINE Negative (Negative); OPIATE SCREEN, URINE Negative (Negative)
[2019-01-14 02:00] VITALS: BP 148/89
[2019-01-14 05:46] LABS: ALANINE AMINOTRANSFERASE 102 U/L (12-78); ALBUMIN 3.3 g/dL (3.4-5.0); ANION GAP 5 mmol/L (5-15); BILIRUBIN, DIRECT 0.2 mg/dL (0.1-0.2); CALCIUM 8.8 mg/dL (8.5-10.1); CHLORIDE 109 mmol/L (98-107)
[2019-01-14 05:51] LABS: ALKALINE PHOSPHATASE 76 U/L (45-117); BILIRUBIN,INDIRECT 0.3 mg/dL (0.0-2.0); BILIRUBIN,TOTAL 0.5 mg/dL (0.2-1.0); TOTAL PROTEIN 6.4 g/dL (6.4-8.2)
[2019-01-14 05:52] LABS: BASOPHILS % (AUTO) 0 % (0-1); EOSINOPHILS % (AUTO) 0 % (1-7); LYMPHOCYTES # (AUTO) 0.42 x10^3/uL (1-3.4); LYMPHOCYTES % (AUTO) 8 % (22-44); MD NO; MEAN CORPUSCULAR HEMOGLOBIN 35.6 pg (27.5-34.5); MEAN CORPUSCULAR HGB CONC 34.2 g/dL (33.2-36.2); MEAN PLATELET VOLUME 8.6 fL (7.4-10.4); MONOCYTES # (AUTO) 0.13 x10^3/uL (0.2-0.8); MONOCYTES % (AUTO) 2 % (2-9); NEUTROPHILS # (AUTO) 4.88 x10^3/uL (1.8-6.8); NEUTROPHILS % (AUTO) 90 % (42-75); PLATELET COUNT 159 x10^3/uL (130-400); RED BLOOD COUNT 4.01 x10^6/uL (4.38-5.82); RED CELL DISTRIBUTION WIDTH 13.1 % (9.4-14.8)
[2019-01-14] MEDS: SODIUM CHLORIDE 0.9% 1,000 ML IV SCH ×2 (06:17→16:31)
[2019-01-14 07:28] VITALS: BP 150/94
[2019-01-14] MEDS ORDERED: OMNIPAQUE 350 MG/ML, 100ML BOTTLE ONE (10:18)
[2019-01-14] MEDS ORDERED: MELO15TA24 PO (12:02)
[2019-01-14] MEDS: LORazepam 2 MG/ML, 1ML IV PRN ×2 (13:18→22:36)
[2019-01-14 14:24] VITALS: BP 148/88
[2019-01-14 19:29] VITALS: BP 146/84
[2019-01-14] MEDS: LEVOFLOXACIN/PMX 750MG/150ML 150 ML IV SCH (20:17)
[2019-01-14] MEDS ORDERED: DIPHENHYDRAMINE 25 MG CAPSULE PO PRN (23:00)
[2019-01-14] MEDS ORDERED: CALCIUM CARBONATE 500 MG TAB.CHEW PO PRN (23:00)
[2019-01-15 01:03] VITALS: BP 136/81
[2019-01-15] MEDS: SODIUM CHLORIDE 0.9% 1,000 ML IV SCH ×2 (03:28→13:06)
[2019-01-15 08:22] VITALS: BP 146/96
[2019-01-15] MEDS ORDERED: MELOXICAM 15 MG TABLET PO SCH (09:00)
== END 2019-01-15 13:05 | disposition home or self-care (01) | DRG 91 ==
LOC: ED 18:03 → EDIP 19:53 → 4EST 19:57 → DCLOUNGE 01-15 12:50
PROVIDERS: ADMIT Internal Medicine; ATTEND Internal Medicine
DX: G92 Toxic encephalopathy (principal); J96.01 Acute respiratory failure with hypoxia; J44.1 Chronic obstructive pulmonary disease with (acute) exacerbation; F10.121 Alcohol abuse with intoxication delirium; I10 Essential (primary) hypertension; J32.9 Chronic sinusitis, unspecified; M19.90 Unspecified osteoarthritis, unspecified site; G56.03 Carpal tunnel syndrome, bilateral upper limbs; Z72.0 Tobacco use; Z87.820 Personal history of traumatic brain injury; Z99.81 Dependence on supplemental oxygen
CPT/HCPCS: 36415; 36600; 99291; J7613; J7620; 70450; 71045; 71275; 80048; 80053; 80076; 80307; 82140; 82803; 83605; 83690; 83735; 83880; 84484; 85025; 85379; 85610; 85730; 87040; 93005; 94640; 96374; 96375; G0378; J1956; Q9967; J2060; J2930; J7030; Q0163

== ENCOUNTER 2019-01-16 03:05 | Emergency (ER) | payer MEDICAID ==
[~2019-01-16] VITALS: Ht 177.8 cm; Wt 87.0 kg
[~2019-01-16 03:05] MED LIST changes: +MELO15TA24 PO
[2019-01-16] MEDS ORDERED: SODIUM CHLORIDE FLUSH 10ML SYR IVF ONE (03:30)
[2019-01-16 03:34] VITALS: BP 167/110
--- NOTE | 2019-01-16 03:36 | NUR ---
BRANDON. REPORT FROM EMS. PT C/O SOB/ANXIETY/GENERALIZED PAIN. PT HAS HX OF ETOH. PT STOPPED DRINKING FOR 3 DAYS. PT'S AOX4. RESPS EVEN AND UNLABORED. ALL MONITORS IN PLACE. EKG DONE AT BEDSIDE BY EMS. PT DENIES N/V/D AT THIS TIME.
[2019-01-16] MEDS ORDERED: ALBUTEROL/IPRATROPIUM 2.5MG/0.5MG, 3 ML ONE (03:40)
[2019-01-16] MEDS ORDERED: LORazepam 2 MG/ML, 1ML ONE (03:41)
[2019-01-16] MEDS ORDERED: methylPREDNISolone SOD SUCC 125 MG/2 ML ONE (03:41)
--- NOTE | 2019-01-16 03:42 | NUR ---
RT AT BEDSIDE AT THIS TIME.
[2019-01-16 03:44] LABS: BASOPHILS # (AUTO) 0.04 x10^3/uL (0-0.1); BASOPHILS % (AUTO) 1 % (0-1); EOSINOPHILS # (AUTO) 0.04 x10^3/uL (0-0.4); EOSINOPHILS % (AUTO) 1 % (1-7); LYMPHOCYTES # (AUTO) 1.78 x10^3/uL (1-3.4); LYMPHOCYTES % (AUTO) 31 % (22-44); MD NO; MEAN CORPUSCULAR HEMOGLOBIN 36.2 pg (27.5-34.5); MEAN CORPUSCULAR HGB CONC 34.8 g/dL (33.2-36.2); MEAN CORPUSCULAR VOLUME 104.1 fL (81-97); MEAN PLATELET VOLUME 8.2 fL (7.4-10.4); MONOCYTES # (AUTO) 0.43 x10^3/uL (0.2-0.8); MONOCYTES % (AUTO) 7 % (2-9); NEUTROPHILS # (AUTO) 3.54 x10^3/uL (1.8-6.8); NEUTROPHILS % (AUTO) 61 % (42-75); PLATELET COUNT 163 x10^3/uL (130-400); RED BLOOD COUNT 4.31 x10^6/uL (4.38-5.82); RED CELL DISTRIBUTION WIDTH 13.1 % (9.4-14.8)
--- NOTE | 2019-01-16 03:50 | NUR ---
PT MEDICATED PER EMAR. PT TOLERATED WELL. PT'S AOX4. RESPS EVEN AND UNLABORED.
[2019-01-16 03:52] LABS: ALANINE AMINOTRANSFERASE 100 U/L (12-78); ALBUMIN 3.8 g/dL (3.4-5.0); ANION GAP 7 mmol/L (5-15); CALCIUM 8.3 mg/dL (8.5-10.1); CHLORIDE 114 mmol/L (98-107)
--- NOTE | 2019-01-16 03:56 | NUR ---
PT PROVIDED WARM BLANKET AT THIS TIME.
[2019-01-16 03:57] LABS: ALKALINE PHOSPHATASE 83 U/L (45-117); BILIRUBIN,TOTAL 0.4 mg/dL (0.2-1.0); CREATININE 0.71 mg/dL (0.7-1.3); TROPONIN I < 0.015 ng/mL (0.000-0.045)
[2019-01-16] MEDS ORDERED: LORazepam 2 MG/ML, 1ML IVP ONE (04:00)
[2019-01-16] MEDS ORDERED: ALBUTEROL/IPRATROPIUM 2.5MG/0.5MG, 3 ML NPPB PRN (04:00)
[2019-01-16] MEDS ORDERED: ALBUTEROL/IPRATROPIUM 2.5MG/0.5MG, 3 ML NPPB ONE (04:00)
[2019-01-16] MEDS ORDERED: methylPREDNISolone SOD SUCC 125 MG/2 ML IVP ONE (04:00)
--- NOTE | 2019-01-16 04:36 | NUR ---
PT GIVEN DC INSTRUCTIONS. PT AMB TO DC WITH STEADY GAIT. PT'S AOX4. RESPS EVEN AND UNLABORED. PT PROVIDED TAXI VOUCHER AT DC. NO ACUTE DISTRESS AT DC.
== END 2019-01-16 04:37 | disposition home or self-care (01) ==
LOC: ED 04:30
DX: F10.220 Alcohol dependence with intoxication, uncomplicated (principal); J44.1 Chronic obstructive pulmonary disease with (acute) exacerbation; Z72.9 Problem related to lifestyle, unspecified; I10 Essential (primary) hypertension; F17.210 Nicotine dependence, cigarettes, uncomplicated
CPT/HCPCS: 36415; 71045; 80053; 80307; 83880; 84484; 85025; 93005; 94640; 96374; 96375; 99284; J2060; J2930

== ENCOUNTER 2019-03-16 23:23 | Inpatient (IN) | payer MEDICAID, OTHER ==
[~2019-03-16] VITALS: Ht 177.8 cm; Wt 81.7 kg
--- NOTE | 2019-03-16 23:23 | NUR ---
PT ARRIVES VIA [facility] TONIGHT WITH MULTIPLE COMPLAINTS. PT REPORTS LEFT SIDED CHEST PAIN, RIGHT SIDED AMBRIZ, AND LEFT SIDED WEAKNESS WITH SYMPTOMS BEGINNING, PER PT, BETWEEN 1730 AND 2240 TODAY. PT STATES THAT CP HAS RESOLVED UPON ARRIVAL TO [facility] ED. PT RECEIVED IV ACCESS BY EMS EN ROUTE TO HOSPITAL. FSBS 88. PT ARRIVES TO [facility] ED WITH STABLE VITALS. PT EDUCATED ON ER PROCESS AND POC. PT VERBALIZES UNDERSTANDING. CALL LIGHT IS WITHIN REACH. GAGE HOLCOMB AT BS FOR PT HISTORY AND ASSESSMENT. EKG DONE AT BS UPON ARRIVAL TO [facility] ED.
[2019-03-17 00:33] LABS: BASOPHILS # (AUTO) 0.03 x10^3/uL (0-0.1); BASOPHILS % (AUTO) 0 % (0-1); EOSINOPHILS # (AUTO) 0.13 x10^3/uL (0-0.4); EOSINOPHILS % (AUTO) 2 % (1-7); LYMPHOCYTES # (AUTO) 1.37 x10^3/uL (1-3.4); LYMPHOCYTES % (AUTO) 18 % (22-44); MD NO; MEAN CORPUSCULAR HEMOGLOBIN 35.7 pg (27.5-34.5); MEAN CORPUSCULAR HGB CONC 33.3 g/dL (33.2-36.2); MEAN CORPUSCULAR VOLUME 107.3 fL (81-97); MEAN PLATELET VOLUME 8.9 fL (7.4-10.4); MONOCYTES # (AUTO) 0.59 x10^3/uL (0.2-0.8); MONOCYTES % (AUTO) 8 % (2-9); NEUTROPHILS # (AUTO) 5.36 x10^3/uL (1.8-6.8); NEUTROPHILS % (AUTO) 72 % (42-75); PLATELET COUNT 144 x10^3/uL (130-400); RED BLOOD COUNT 4.41 x10^6/uL (4.38-5.82); RED CELL DISTRIBUTION WIDTH 14.2 % (9.4-14.8)
[2019-03-17 00:41] LABS: INTERNATIONAL NORMALIZED RATIO 1.01 (0.93-1.1); PROTHROMBIN TIME 10.6 Seconds (9.6-11.5)
[2019-03-17] MEDS ORDERED: OMNIPAQUE 350 MG/ML, 100ML BOTTLE ONE (00:47)
--- NOTE | 2019-03-17 01:00 | NUR ---
PT RESTING COMFORTABLY IN [facility] AT THIS TIME; NADN. VSS AND UPDATED IN EMR. PT DENIES ANY NEEDS AT THIS TIME. WAITING FOR PT DISPOSITION.
--- NOTE | 2019-03-17 01:40 | NUR ---
report of pt to trenton burns. all questions answered. tech paged for transport of pt to floor.
[2019-03-17 02:10] LABS: TROPONIN I < 0.015 ng/mL (0.000-0.045)
[2019-03-17 02:21] VITALS: BP 149/96
[2019-03-17] MEDS ORDERED: LORazepam 2 MG/ML, 1ML IVPush ONE (02:30)
[2019-03-17] MEDS ORDERED: LORazepam 2 MG/ML, 1ML IVPush PRN (03:30)
[2019-03-17 04:05] VITALS: BP 161/104
[2019-03-17] MEDS: hydrALAzine 20 MG/ML, 1ML IVPush PRN ×2 (04:07→20:22)
[2019-03-17 04:38] VITALS: BP 132/86
[2019-03-17] MEDS: ASPIRIN 81 MG TABLET EC PO SCH ×2 (05:20→20:23)
[2019-03-17 08:09] VITALS: BP 143/88
[2019-03-17] MEDS: POTASSIUM CHLORIDE 20 MEQ, MAGNESIUM SULFATE 1 GM, THIAMINE 200 MG, FOLIC ACID 1 MG, MV... IV SCH (10:34)
[2019-03-17] MEDS: LORazepam 2 MG/ML, 1ML IVPush PRN ×2 (11:11→20:23)
[2019-03-17 11:40] LABS: BASOPHILS # (AUTO) 0.02 x10^3/uL (0-0.1); BASOPHILS % (AUTO) 0 % (0-1); EOSINOPHILS # (AUTO) 0.11 x10^3/uL (0-0.4); EOSINOPHILS % (AUTO) 2 % (1-7); LYMPHOCYTES # (AUTO) 0.98 x10^3/uL (1-3.4); LYMPHOCYTES % (AUTO) 17 % (22-44); MD NO; MEAN CORPUSCULAR HEMOGLOBIN 35.5 pg (27.5-34.5); MEAN CORPUSCULAR HGB CONC 33.4 g/dL (33.2-36.2); MEAN PLATELET VOLUME 9.4 fL (7.4-10.4); MONOCYTES # (AUTO) 0.45 x10^3/uL (0.2-0.8); MONOCYTES % (AUTO) 8 % (2-9); NEUTROPHILS # (AUTO) 4.05 x10^3/uL (1.8-6.8); NEUTROPHILS % (AUTO) 72 % (42-75); PLATELET COUNT 134 x10^3/uL (130-400); RED BLOOD COUNT 4.71 x10^6/uL (4.38-5.82); RED CELL DISTRIBUTION WIDTH 13.9 % (9.4-14.8)
[2019-03-17 12:41] LABS: ANION GAP 10 mmol/L (5-15); CHLORIDE 109 mmol/L (98-107)
[2019-03-17] MEDS ORDERED: ACETAMINOPHEN 325 MG TABLET PO PRN (13:00)
[2019-03-17 13:08] LABS: ALANINE AMINOTRANSFERASE 57 U/L (12-78); ALKALINE PHOSPHATASE 75 U/L (45-117); BILIRUBIN,TOTAL 1.2 mg/dL (0.2-1.0); CREATININE 0.69 mg/dL (0.7-1.3); THYROID STIMULATING HORMONE 0.633 mIU/L (0.358-3.740); TOTAL PROTEIN 7.3 g/dL (6.4-8.2)
[2019-03-17] MEDS ORDERED: ALBUTEROL/IPRATROPIUM 2.5MG/0.5MG, 3 ML NPPB PRN (14:00)
[2019-03-17] MEDS ORDERED: ALBUTEROL/IPRATROPIUM 2.5MG/0.5MG, 3 ML NPPB SCH (15:00)
[2019-03-17 15:30] VITALS: BP 166/89
[2019-03-17 20:06] VITALS: BP 166/106
[2019-03-17] MEDS: BUDESONIDE 0.5 MG/2 ML INHA NPPB SCH (21:00)
[2019-03-17] MEDS: ALBUTEROL/IPRATROPIUM 2.5MG/0.5MG, 3 ML NPPB SCH (21:00)
[2019-03-18] VITALS (7 sets, daily range): BP systolic 151–168; BP diastolic 88–113
[2019-03-18] MEDS: LORazepam 2 MG/ML, 1ML IVPush PRN ×2 (03:01→10:30)
[2019-03-18 06:09] LABS: ALBUMIN 3.6 g/dL (3.4-5.0); ANION GAP 7 mmol/L (5-15); CALCIUM 8.9 mg/dL (8.5-10.1); CHLORIDE 107 mmol/L (98-107)
[2019-03-18 06:10] LABS: BASOPHILS # (AUTO) 0.01 x10^3/uL (0-0.1); BASOPHILS % (AUTO) 0 % (0-1); EOSINOPHILS # (AUTO) 0.12 x10^3/uL (0-0.4); EOSINOPHILS % (AUTO) 2 % (1-7); LYMPHOCYTES # (AUTO) 0.93 x10^3/uL (1-3.4); LYMPHOCYTES % (AUTO) 14 % (22-44); MD NO; MEAN CORPUSCULAR HEMOGLOBIN 35.3 pg (27.5-34.5); MEAN CORPUSCULAR HGB CONC 33.1 g/dL (33.2-36.2); MEAN CORPUSCULAR VOLUME 106.7 fL (81-97); MEAN PLATELET VOLUME 9.3 fL (7.4-10.4); MONOCYTES % (AUTO) 9 % (2-9); NEUTROPHILS # (AUTO) 4.98 x10^3/uL (1.8-6.8); NEUTROPHILS % (AUTO) 75 % (42-75); PLATELET COUNT 118 x10^3/uL (130-400); RED BLOOD COUNT 4.74 x10^6/uL (4.38-5.82); RED CELL DISTRIBUTION WIDTH 13.6 % (9.4-14.8)
[2019-03-18 06:23] LABS: ALANINE AMINOTRANSFERASE 45 U/L (12-78); ALKALINE PHOSPHATASE 76 U/L (45-117); BILIRUBIN,TOTAL 1.5 mg/dL (0.2-1.0); CREATININE 0.81 mg/dL (0.7-1.3); TOTAL PROTEIN 6.9 g/dL (6.4-8.2)
[2019-03-18] MEDS: ALBUTEROL/IPRATROPIUM 2.5MG/0.5MG, 3 ML NPPB SCH (07:00)
[2019-03-18] MEDS: BUDESONIDE 0.5 MG/2 ML INHA NPPB SCH (07:00)
[2019-03-18 08:35] LABS: CHOL/HDL RATIO 1.8; LDL/HDL RATIO 0.6 (0.5-3.0)
[2019-03-18] MEDS: hydrALAzine 20 MG/ML, 1ML IVPush PRN ×2 (09:27→14:06)
[2019-03-18] MEDS: POTASSIUM CHLORIDE 20 MEQ, MAGNESIUM SULFATE 1 GM, THIAMINE 200 MG, FOLIC ACID 1 MG, MV... IV SCH (10:30)
[2019-03-18] MEDS ORDERED: LORazepam 0.5MG TABLET PO PRN (14:00)
[2019-03-18] MEDS: ENOXAPARIN 40 MG/0.4 ML SQ SCH ×2 (14:00→14:06)
[2019-03-18] MEDS ORDERED: DIPHENHYDRAMINE 50 MG CAPSULE ONE (14:30)
[2019-03-18] MEDS ORDERED: DIPHENHYDRAMINE 50 MG CAPSULE PO PRN (14:30)
[2019-03-18] MEDS ORDERED: LORazepam 2 MG/ML, 1ML IVPush PRN (15:30)
[2019-03-18] MEDS ORDERED: ATORVASTATIN 40 MG TABLET PO SCH (21:00)
== END 2019-03-18 17:11 | disposition left against medical advice (07) | DRG 92 ==
LOC: ED 23:43 → EDIP 03-17 01:09 → 4EST 03-17 02:14
PROVIDERS: ADMIT Internal Medicine; ATTEND Internal Medicine
DX: R29.810 Facial weakness (principal); J96.10 Chronic respiratory failure, unspecified whether with hypoxia or hypercapnia; F10.239 Alcohol dependence with withdrawal, unspecified; D75.89 Other specified diseases of blood and blood-forming organs; E87.6 Hypokalemia; F17.200 Nicotine dependence, unspecified, uncomplicated; F41.9 Anxiety disorder, unspecified; I10 Essential (primary) hypertension; J44.9 Chronic obstructive pulmonary disease, unspecified; K44.9 Diaphragmatic hernia without obstruction or gangrene; Z86.73 Personal history of transient ischemic attack (TIA), and cerebral infarction without residual deficits; Z91.19 Patient's noncompliance with other medical treatment and regimen; Z53.21 Procedure and treatment not carried out due to patient leaving prior to being seen by health care provider; R91.1 Solitary pulmonary nodule; Y90.8 Blood alcohol level of 240 mg/100 ml or more
CPT/HCPCS: 36415; 84145; 99291; J7620; 70450; 70496; 70498; 70551; 71275; 74177; 80047; 80053; 80061; 80307; 82607; 84443; 84484; 85025; 85610; 85730; 93005; 94640; G0378; J1650; J3411; J3475; J3480; Q9967; J0360; J2060; J7030

== ENCOUNTER 2019-04-02 23:38 | Emergency (ER) | payer SELFPAY ==
[~2019-04-02] VITALS: Ht 177.8 cm; Wt 77.9 kg
[2019-04-02 23:39] VITALS: BP 123/84
--- NOTE | 2019-04-03 | NUR ---
PT TO ROOM IN GOWN AND PLACED ON MONITOR.
[2019-04-03] MEDS ORDERED: ALBUTEROL/IPRATROPIUM 2.5MG/0.5MG, 3 ML ONE (00:14)
[2019-04-03] MEDS ORDERED: ALBUTEROL SULFATE 2.5 MG/3 ML NPPB ONE (00:30)
[2019-04-03 00:47] LABS: BASOPHILS # (AUTO) 0.04 x10^3/uL (0-0.1); BASOPHILS % (AUTO) 0 % (0-1); EOSINOPHILS # (AUTO) 0.03 x10^3/uL (0-0.4); EOSINOPHILS % (AUTO) 0 % (1-7); LYMPHOCYTES # (AUTO) 1.45 x10^3/uL (1-3.4); LYMPHOCYTES % (AUTO) 8 % (22-44); MD NO; MEAN CORPUSCULAR HEMOGLOBIN 36.3 pg (27.5-34.5); MEAN CORPUSCULAR VOLUME 106.8 fL (81-97); MEAN PLATELET VOLUME 8.1 fL (7.4-10.4); MONOCYTES # (AUTO) 1.17 x10^3/uL (0.2-0.8); MONOCYTES % (AUTO) 7 % (2-9); NEUTROPHILS # (AUTO) 14.51 x10^3/uL (1.8-6.8); NEUTROPHILS % (AUTO) 84 % (42-75); PLATELET COUNT 151 x10^3/uL (130-400); RED BLOOD COUNT 4.56 x10^6/uL (4.38-5.82); RED CELL DISTRIBUTION WIDTH 13.5 % (9.4-14.8)
--- NOTE | 2019-04-03 00:48 | NUR ---
PT RESTING IN NO DISTRESS AWAITING TEST RESULTS AND ERP RECHECK.
[2019-04-03 00:51] LABS: CHLORIDE 104 mmol/L (98-107)
[2019-04-03 00:57] LABS: ALANINE AMINOTRANSFERASE 30 U/L (12-78); ALBUMIN 3.4 g/dL (3.4-5.0); ANION GAP 10 mmol/L (5-15); CALCIUM 8.9 mg/dL (8.5-10.1); CREATININE 0.82 mg/dL (0.7-1.3)
[2019-04-03 01:16] LABS: ALKALINE PHOSPHATASE 88 U/L (45-117); BILIRUBIN,TOTAL 0.8 mg/dL (0.2-1.0); TOTAL PROTEIN 7.6 g/dL (6.4-8.2); TROPONIN I < 0.015 ng/mL (0.000-0.045)
[2019-04-03] MEDS ORDERED: POTASSIUM CHLORIDE 20 MEQ TAB.ER.PRT PO ONE (02:00)
[2019-04-03] MEDS ORDERED: POTASSIUM CHLORIDE 20 MEQ TAB.ER.PRT ONE (02:06)
== END 2019-04-03 02:16 | disposition home or self-care (01) ==
LOC: ED 04-03 02:12
DX: J44.1 Chronic obstructive pulmonary disease with (acute) exacerbation (principal); R07.89 Other chest pain; F10.120 Alcohol abuse with intoxication, uncomplicated; J20.9 Acute bronchitis, unspecified; B96.89 Other specified bacterial agents as the cause of diseases classified elsewhere; Z72.9 Problem related to lifestyle, unspecified; I10 Essential (primary) hypertension
CPT/HCPCS: 36415; 71046; 80053; 80307; 84484; 85025; 93005; 94640; 99284; J7512; J7613

== ENCOUNTER 2019-04-08 13:35 | Emergency (ER) | payer SELFPAY ==
[~2019-04-08] VITALS: Ht 180.3 cm; Wt 81.0 kg
--- NOTE | 2019-04-08 14:01 | NUR ---
PT BIB EMS FOR C/O SOB, STATES HE USUALLY USES 02 BUT WAS UNABLE TO ACCESS DUE TO IT BEING LOCKED AT THE [facility]. SPO2 91% ON ROOM AIR, IMPROVED TO 97% AT THIS TIME. NO NEEDS, PT VERY TIRED AND JUST WANTS TO SLEEP. REPORT TO OSMAN FISCHER.
--- NOTE | 2019-04-08 14:24 | NUR ---
PT INTERMITTENTLY DOZING. SPO2 TO 88% WHILE SLEEPING; RESPIRATIONS EVEN/UNLABORED. PT EASILY ARROUSABLE TO VOICE. SPO2 >90% WHILE AWAKE. AWAITING RT
[2019-04-08] MEDS ORDERED: ALBUTEROL/IPRATROPIUM 2.5MG/0.5MG, 3 ML ONE (14:26)
--- NOTE | 2019-04-08 14:27 | NUR ---
RT AT BEDSIDE
[2019-04-08] MEDS ORDERED: ALBUTEROL/IPRATROPIUM 2.5MG/0.5MG, 3 ML NPPB ONE (14:30)
[2019-04-08] MEDS ORDERED: ALBUTEROL SULFATE 2.5 MG/3 ML ONE (14:33)
[2019-04-08] MEDS ORDERED: ALBUTEROL SULFATE 2.5 MG/3 ML NPPB ONE (14:35)
--- NOTE | 2019-04-08 14:53 | NUR ---
PER ERP, POC IS DC AFTER [facility] OPENS AT 1600. RT TREATMENT COMPLETE. PT MOSTLY SLEEPY THROUGHOUT TREATMENT. RA SPO2 >90% WHILE AWAKE POST TX. PT REPORTS BASELINE O2 NEEDS OF "5 LITERS" PRN. PT PLACED ON 4.5L BY NC FOR SUPPORT WHILE RESTING. SPO2 >90%. RR WNL. NSR ON MONITOR.
[2019-04-08 14:55] VITALS: BP 144/89
[2019-04-08] MEDS ORDERED: ALBUTEROL/IPRATROPIUM 2.5MG/0.5MG, 3 ML NPPB PRN (15:00)
--- NOTE | 2019-04-08 15:30 | NUR ---
PT RESTING IN GURNEY W/ EYES CLOSED. EVEN/REGULAR RESPIRATIONS NOTED.
--- NOTE | 2019-04-08 16:01 | NUR ---
DC EDUCATION PROVIDED BY OSMAN WOOD. PT TO DC BY WHEELCHAIR. TAXI VOUCHER PROVIDED FOR SAFE TRANSPORT TO [facility]
== END 2019-04-08 16:09 | disposition home or self-care (01) ==
LOC: ED 15:39
DX: J43.9 Emphysema, unspecified (principal)
CPT/HCPCS: 94640; 99284; J7613; J7620

== ENCOUNTER 2019-05-01 01:34 | Emergency (ER) | payer SELFPAY ==
[~2019-05-01] VITALS: Ht 177.8 cm; Wt 80.0 kg
--- NOTE | 2019-05-01 01:55 | NUR ---
Pt presents to ed c/o stroke like s/s today w/ L sided weakness since 2199 this pm. However strengths and corrugator machine operator are equal bilaterally. Pt claims to not be able to move L side, but is utilizing L arm to adjust self in bed and [employer] L leg when it dropped out of bed. Pt is slurring speech, but smells grossly of etoh. Monitoring applied. Vss. Call light within reach. Pa at bedside for assessment.
[2019-05-01] MEDS ORDERED: QUETIAPINE 25MG TABLET PO SCH (02:00)
[2019-05-01] MEDS ORDERED: QUETIAPINE 25MG TABLET ONE (02:25)
--- NOTE | 2019-05-01 02:27 | NUR ---
Pt successfully drank water utilizing L hand and med cup in R hand.
[2019-05-01 02:29] LABS: BASOPHILS # (AUTO) 0.05 x10^3/uL (0-0.1); BASOPHILS % (AUTO) 1 % (0-1); EOSINOPHILS # (AUTO) 0.16 x10^3/uL (0-0.4); EOSINOPHILS % (AUTO) 2 % (1-7); LYMPHOCYTES % (AUTO) 29 % (22-44); MD NO; MEAN CORPUSCULAR HGB CONC 33.4 g/dL (33.2-36.2); MEAN CORPUSCULAR VOLUME 104.8 fL (81-97); MEAN PLATELET VOLUME 8.4 fL (7.4-10.4); MONOCYTES # (AUTO) 0.43 x10^3/uL (0.2-0.8); MONOCYTES % (AUTO) 6 % (2-9); NEUTROPHILS % (AUTO) 62 % (42-75); PLATELET COUNT 215 x10^3/uL (130-400); RED BLOOD COUNT 4.22 x10^6/uL (4.38-5.82)
[2019-05-01 02:36] LABS: ALBUMIN 3.5 g/dL (3.4-5.0); ANION GAP 9 mmol/L (5-15); CALCIUM 8.5 mg/dL (8.5-10.1); CHLORIDE 111 mmol/L (98-107)
[2019-05-01 02:40] LABS: ALANINE AMINOTRANSFERASE 54 U/L (12-78); ALKALINE PHOSPHATASE 106 U/L (45-117); BILIRUBIN,TOTAL 0.3 mg/dL (0.2-1.0); CREATININE 0.72 mg/dL (0.7-1.3); TOTAL PROTEIN 7.9 g/dL (6.4-8.2)
[2019-05-01 02:53] VITALS: BP 143/98
--- NOTE | 2019-05-01 03:01 | NUR ---
All results back. Pt up for recheck.
== END 2019-05-01 04:08 | disposition home or self-care (01) ==
LOC: ED 02:34
DX: R53.1 Weakness (principal); F10.120 Alcohol abuse with intoxication, uncomplicated
CPT/HCPCS: 36415; 70450; 80053; 80307; 85025; 99284

== ENCOUNTER 2019-05-01 04:43 | Emergency (ER) | payer SELFPAY ==
[~2019-05-01] VITALS: Ht 172.7 cm; Wt 68.0 kg
--- NOTE | 2019-05-01 05:57 | NUR ---
ASSISTING RN: PT RESTING CALMLY IN BED. NO STATED NEEDS AT THIS TIME. PT VSS.
--- NOTE | 2019-05-01 06:51 | NUR ---
Pt report to franny chowdhury.
[2019-05-01 07:00] VITALS: BP 112/71
--- NOTE | 2019-05-01 07:18 | NUR ---
PT RESTING ON GURNEY AT THIS TIME. VSS, NAD NOTED.
== END 2019-05-01 07:58 | disposition home or self-care (01) ==
LOC: ED 05:23
DX: R42 Dizziness and giddiness (principal); F10.220 Alcohol dependence with intoxication, uncomplicated; I10 Essential (primary) hypertension; Z71.41 Alcohol abuse counseling and surveillance of alcoholic
CPT/HCPCS: 93005; 99283

== ENCOUNTER 2019-09-18 22:31 | Emergency (ER) | payer SELFPAY ==
[~2019-09-18] VITALS: Ht 177.8 cm; Wt 83.7 kg
[~2019-09-18 22:31] MED LIST changes: -GUAI200T3 PO; +GUAI200T37 PO
[2019-09-18 22:36] VITALS: BP 181/121
--- NOTE | 2019-09-18 23:11 | NUR ---
pt left, signed ama form at reg, didnt want "to wait and going to [place]"
== END 2019-09-18 23:13 | disposition left against medical advice (07) ==
LOC: ED 23:07
DX: R56.9 Unspecified convulsions (principal); Z53.21 Procedure and treatment not carried out due to patient leaving prior to being seen by health care provider

== ENCOUNTER 2019-11-19 11:31 | Emergency (ER) | payer MEDICAID ==
[~2019-11-19] VITALS: Ht 177.8 cm; Wt 86.0 kg
[~2019-11-19 11:31] MED LIST changes: -GUAI400T66 PO; +GUAI400T81 PO
[2019-11-19] MEDS ORDERED: GABA600T7 PO (11:45)
[2019-11-19] MEDS ORDERED: [UNRECOGNIZED DRUG - CODE] PO (11:45)
--- NOTE | 2019-11-19 11:47 | NUR ---
Pt states he has been having L ear pain radiating down jaw with hearing loss & vertigo x 1wk. Also twisted L foot on stairs 1 wk ago & states it has been painful to walk on it since.
--- NOTE | 2019-11-19 12:22 | NUR ---
X-ray of foot complete. Waiting on CT of mandible.
--- NOTE | 2019-11-19 12:34 | NUR ---
To CT via [facility].
[2019-11-19] MEDS ORDERED: KETOROLAC 30 MG/1 ML ONE (12:50)
[2019-11-19] MEDS ORDERED: KETOROLAC 30 MG/1 ML IM ONE (13:00)
[2019-11-19] MEDS ORDERED: hydrOXyzine 50MG TABLET PO ONE (13:00)
--- NOTE | 2019-11-19 13:03 | NUR ---
Pt states he is having a panic attack and needs meds for it. States he takes something at home for anxiety & panic attacks but does not remember the name of it. Room darkened for comfort, curtain opened, po hydroxizine given for anxiety. VS rechecked. CT results pending.
[2019-11-19 13:04] VITALS: BP 125/75
--- NOTE | 2019-11-19 13:37 | NUR ---
Pt states anxiety is gone & pain greatly improved at time of d/c.
== END 2019-11-19 13:39 | disposition home or self-care (01) ==
LOC: ED 13:30
DX: S93.602A Unspecified sprain of left foot, initial encounter (principal); H61.21 Impacted cerumen, right ear; F41.1 Generalized anxiety disorder; F17.200 Nicotine dependence, unspecified, uncomplicated; X58.XXXA Exposure to other specified factors, initial encounter; Y93.89 Activity, other specified; Y92.89 Other specified places as the place of occurrence of the external cause; Y99.8 Other external cause status
CPT/HCPCS: 70480; 73630; 96372; 99284; J1885

== ENCOUNTER 2020-09-15 16:45 | Emergency (ER) | payer MEDICAID ==
[~2020-09-15] VITALS: Ht 172.7 cm; Wt 85.0 kg
[~2020-09-15 16:45] MED LIST changes: +GABA600T7 PO; +[UNRECOGNIZED DRUG - CODE] PO
--- NOTE | 2020-09-15 16:53 | NUR ---
PT BIB EMS FOR SOB X3 DAYS. HX OF COPD, [place], HTN. INSP AND EXP WHEEZES. EMS GAVE ALBUTEROL AND DUONEB. PT FELT BETTER AFTER TREATMENT. DENIES CP. CARD MONITOR IN PLACE.
--- NOTE | 2020-09-15 17:31 | NUR ---
Jarrell skaggs in [place] - 09/15/20 at 1732 by TYRON PT RESTING COMFORTABLE. WILL ORDER MEAL TRAY
[2020-09-15 17:47] LABS: BASOPHILS % (AUTO) 1 % (0-1); EOSINOPHILS % (AUTO) 2 % (1-7); LYMPHOCYTES % (AUTO) 18 % (22-44); MEAN CORPUSCULAR HEMOGLOBIN 32.2 pg (27.5-34.5); MEAN CORPUSCULAR HGB CONC 33.7 g/dL (33.2-36.2); MEAN PLATELET VOLUME 8.5 fL (7.4-10.4); MONOCYTES % (AUTO) 9 % (2-9); NEUTROPHILS % (AUTO) 72 % (42-75); PLATELET COUNT 219 x10^3/uL (130-400); RED BLOOD COUNT 4.16 x10^6/uL (4.38-5.82); RED CELL DISTRIBUTION WIDTH 13.6 % (9.4-14.8)
[2020-09-15 17:48] LABS: MD NO
[2020-09-15 17:57] LABS: ALANINE AMINOTRANSFERASE 37 U/L (12-78); ALBUMIN 2.9 g/dL (3.4-5.0); ANION GAP 4 mmol/L (5-15); CALCIUM 8.6 mg/dL (8.5-10.1); CHLORIDE 110 mmol/L (98-107)
[2020-09-15 18:00] LABS: ALKALINE PHOSPHATASE 129 U/L (45-117); BILIRUBIN,TOTAL 0.3 mg/dL (0.2-1.0); CREATININE 0.69 mg/dL (0.7-1.3); TOTAL PROTEIN 6.4 g/dL (6.4-8.2)
[2020-09-15] MEDS ORDERED: ACETAMINOPHEN 500 MG TABLET ONE (18:40)
--- NOTE | 2020-09-15 18:44 | NUR ---
PT BACK FROM CT. PT CO HEADACHE. MEDICATED PER ORDERS.
[2020-09-15] MEDS ORDERED: ACETAMINOPHEN 500 MG TABLET PO ONE (19:00)
--- NOTE | 2020-09-15 19:10 | NUR ---
ASSUMED CARE OF PATIENT.
--- NOTE | 2020-09-15 19:46 | NUR ---
PT RESTING IN ROOM. NEUROLOGY PHYSICIAN ASSISTANT ON NSR NOTED. VS STABLE. CALL LIGHT IN PLACE. WILL CONTINUE TO MONITOR.
--- NOTE | 2020-09-15 20:33 | NUR ---
PT IS ABLE TO SAFELY AMBULATE AROUND ROOM AND DENNIS, 95% O2. DR LOMELI AWARE.
[2020-09-15 20:34] VITALS: BP 154/92
--- NOTE | 2020-09-15 20:57 | NUR ---
PER DR LOMELI PT DOES NOT NEED A COVID SWAB.
--- NOTE | 2020-09-15 20:58 | NUR ---
PT VERBALIZES DISCHARGE INSTRUCTIONS. PT DISCHARGED PER DR LOMELI.
[2020-09-15] MEDS ORDERED: OMNIPAQUE 350 MG/ML, 100ML BOTTLE ONE (23:07)
== END 2020-09-15 21:00 | disposition home or self-care (01) ==
LOC: ED 17:00
DX: R91.8 Other nonspecific abnormal finding of lung field (principal); R04.2 Hemoptysis; R53.1 Weakness; R06.00 Dyspnea, unspecified; I10 Essential (primary) hypertension; R06.02 Shortness of breath; M19.90 Unspecified osteoarthritis, unspecified site; J44.9 Chronic obstructive pulmonary disease, unspecified; F17.200 Nicotine dependence, unspecified, uncomplicated
CPT/HCPCS: 36415; 71045; 71260; 80053; 83605; 84145; 85025; 87040; 93005; 99285; J7512; Q9967

== ENCOUNTER 2020-09-29 13:07 | Emergency (ER) | payer MEDICAID | END 2020-09-29 13:23 | disposition left against medical advice (07) | LOC: ED 13:17 | DX: Z53.21 Procedure and treatment not carried out due to patient leaving prior to being seen by health care provider (principal) ==

== ENCOUNTER 2021-02-01 18:15 | Emergency (ER) | payer MEDICAID ==
[~2021-02-01] VITALS: Ht 177.8 cm; Wt 78.6 kg
[~2021-02-01 18:15] MED LIST changes: -FOLI-17 PO; +FOLI1TAB32 PO
--- NOTE | 2021-02-01 18:43 | NUR ---
report received from jonas rn, pt resting on gurney, pt changed self back into clothing from gown, sitting on gurney, nad. bed in lowest, pt refusing vitals and to answer rns questions up to this point. will try again in a few. wctm. waiting for chest rad.
--- NOTE | 2021-02-01 18:50 | NUR ---
report given to scot chowdhury.
[2021-02-01 18:54] VITALS: BP 125/73
[2021-02-01] MEDS ORDERED: OXYcodone/APAP 5/325MG TABLET ONE (18:56)
[2021-02-01] MEDS ORDERED: OXYcodone/APAP 5/325MG TABLET PO ONE (19:00)
--- NOTE | 2021-02-01 19:04 | NUR ---
RN AT DISCUSSING WITH PT THAT WE HAVE TO PERFORM MONITORING IN ORDER TO MEDICATE FOR PAIN FOR HIS SAFETY. PT REFUSING STATING "I DONT THINK OU UNDERSTAND THIS PAIN, I CANT HANDLE MONITORING, HOW WOULD YOU LIKE OUR ARM CHOPPED OFF?" RN RESPONDED THAT WE WILL NOT BE REMOVING HIS ARM, I JUST NEED TO BE ABLE TO MONITOR O2 SATS AND ONE MORE BP. PT BEGAN TO YELL AT RN "YOU DONT UNDERSTAND THIS PAIN, YOU SHOULD TAKE A CLASS TO TRY TO COMPREHEND WHAT THIS IS LIKE BECAUSE YOU YOUNGSTER KNOW NOTHING. HOW WOULD YOU LIKE TO FEEL THIS PAIN, YOU OBVIOUSLY NEVER HAD PAIN LIKE THIS. WOULD YOU LIKE ME TO MAKE YOU FEEL THIS TYPE OF PAIN?" RN RE-EXPLAINED THAT MONITORING IS HOSPITAL POLICY AND FOR HIS SAFETY. PT AGREED TO VITALS MONITORING STATING "TELL THE DR ILL ACTUALLY NEED MORPHINE, AT LEAST 30 BECAUSE PECOCET WONT CUT IT NOW", PT MEDICATED PER MAR FOR PAIN AND THEN PT IMMEDIATELY REMOVED MONITORING GOT UP AND STATED "I DONT WANT THE XRAY, I ALREADY KNOW ABOUT THE MASS IN MY CHEST AND DONT FEEL A NEED TO SEE IT AGAIN, THE ONLY REASON FOR AN XRAY WOULD BE TO SEE A BABY, A HAPPY THING." RN REQUESTED PT SIGN AMA, PT REFUSING STATING "IM NOT LEAVING AMA, IM LEAVING BECAUSE YOU ARENT DOING WHAT I NEED." SOCIAL WORK INTERVENED AT THIS TIME, TAKING PT BACK TO ROOM TO DISCUSS RESOURCES. ADITI.
--- NOTE | 2021-02-01 19:31 | NUR ---
Patient given discharge instructions and they have confirmed that they understand the instructions. Patient ambulatory with steady gait. nad, threw DC instructions in trash while ambulating to dc.
== END 2021-02-01 19:33 | disposition home or self-care (01) ==
LOC: ED 19:15
DX: C34.00 Malignant neoplasm of unspecified main bronchus (principal); R07.89 Other chest pain; I10 Essential (primary) hypertension; J44.9 Chronic obstructive pulmonary disease, unspecified; F17.200 Nicotine dependence, unspecified, uncomplicated
CPT/HCPCS: 99283